=== PATIENT | female | born 1955 | race Caucasian/White ===

== ENCOUNTER → 2016-07-18 | Outpatient (CLI) | payer OTHER ==
[~2016-07-18] MED LIST: CALC600T10 PO; ONETAB35 PO; PRAV40TA2 PO; VITA500L3 PO
--- NOTE | 2016-07-22 10:59 | DEXA ---
AP SPINE L1 - L4 1.212 0.1 0.4 LT FEMUR TOTAL 1.031 0.2 0.4 RT FEMUR TOTAL 1.045 0.3 0.5 TOTAL BODY TOTAL OTHER DUAL FEMUR FRAX* ASSESSMENT Risk factors: History of adult fracture. 10 year probability of fracture Major osteoporotic fracture 11.7 % Hip fracture 0.7 % COMMENTS: Normal bone densitometry of the spine and hips. The density of the left hip has decreased 7.9% since 05/08/2008. The density of the right hip has decreased 0.5% since 05/08/2008. The density of the spine has decreased 2.4% since the initial exam on 2002. The spine density has decreased 1.4% since the most recent exam on 05/08/2008. FOLLOW-UP: Recommendation for the next bone density exam: 5 years. JENNIFER
== END | disposition home or self-care (01) ==
LOC: M WHC 07:59
PROVIDERS: ATTEND Internal Medicine
DX: M85.80 Other specified disorders of bone density and structure, unspecified site (principal)

== ENCOUNTER → 2016-12-03 | Outpatient (REF) | payer OTHER | LOC: M LABDRAWC 10:44 | PROVIDERS: ATTEND Obstetrics & Gynecology Gynecologic Oncology | DX: C56.9 Malignant neoplasm of unspecified ovary (principal) ==

== ENCOUNTER → 2017-12-04 | Outpatient (REF) | payer OTHER ==
[2017-12-04 12:23] LABS: CA 125 7.6 U/ML (<30.2)
== END ==
LOC: M LAB REF 11:21
DX: Z68.35 Body mass index [BMI] 35.0-35.9, adult (principal); C56.9 Malignant neoplasm of unspecified ovary

== ENCOUNTER → 2018-05-20 | Outpatient (CLI) | payer OTHER | LOC: M RAD 09:37 | DX: Z12.31 Encounter for screening mammogram for malignant neoplasm of breast (principal); Z92.0 Personal history of contraception | CPT/HCPCS: 77067 ==

== ENCOUNTER → 2018-12-07 | Outpatient (REF) | payer OTHER ==
[~2018-12-07] MED LIST changes: -CALC600T10 PO; +CALC600T31 PO
== END ==
LOC: M LABDRAW1 11:12
PROVIDERS: ATTEND Obstetrics & Gynecology Gynecologic Oncology
DX: C56.9 Malignant neoplasm of unspecified ovary (principal)

== ENCOUNTER → 2019-02-21 | Outpatient (CLI) | payer MEDICARE, OTHER ==
--- NOTE | 2019-02-21 11:59 | REP ---
REASON: Pain. COMPARISON: None. Vertebral body height and alignment is within normal limits. There is mild posterior disc space narrowing and anterior lipping at every level. Mild to moderate hypertrophic degenerative facet joint changes are present at every level bilaterally particularly L4-5 and L5-S1. The pedicles are intact bilaterally. There is no evidence of spondylolysis or spondylolisthesis. Tiny partial syndesmophytes are seen bilaterally at every level. Vascular clips are seen in the abdomen and pelvis. IMPRESSION: Chronic changes as described above. Electronically Signed by Dashawn Fernando DO 02/21/2019 12:49 P
== END ==
LOC: M WUC 10:03
PROVIDERS: ATTEND Internal Medicine
DX: M51.36 Other intervertebral disc degeneration, lumbar region (principal); M51.37 Other intervertebral disc degeneration, lumbosacral region

== ENCOUNTER → 2019-05-20 | Outpatient (CLI) | payer MEDICARE, OTHER | LOC: M PLARAD 13:39 | PROVIDERS: ATTEND Orthopaedic Surgery | DX: M54.16 Radiculopathy, lumbar region (principal) ==

== ENCOUNTER → 2019-05-20 | Outpatient (CLI) | payer MEDICARE, OTHER ==
[2019-05-20 10:39] LABS: BLOOD UREA NITROGEN 15 MG/DL (7-18); CREATININE FOR GFR 0.91 MG/DL (0.55-1.30); GLOMERULAR FILTRATION RATE > 60.0 (>45)
--- NOTE | 2019-05-20 16:56 | REP ---
MRI lumbar spine: 05/20/2019. Indication: Low back pain. Lumbar radiculopathy. Comparison: None. Technique: Multiplanar short and long TR sequences of the lumbar spine were obtained including post-gadolinium images. 20 ml IV ProHance were administered. Findings: Exaggerated endplate degenerative signal changes are noted at T11/T12 with diminished disc space height, particularly anteriorly and slightly exaggerated kyphosis. Lumbar vertebral body alignment is unremarkable. The visualized cord is unremarkable. No worrisome marrow signal or pathologic compression fractures are present. There is abnormal T2 signal and corresponding abnormal gadolinium enhancement surrounding the right L4/L5 facet joint which is most consistent with degenerative changes. Perineural cyst is noted on the right at L5/S1. There is a large cyst of the right kidney which is incompletely evaluated. L1/L2: Unremarkable. L2/L3: Unremarkable. L3/L4: Diffuse disc bulge and bilateral facet arthropathy are present with mild spinal canal / recess narrowing. L4/L5: Significant bilateral facet arthropathy is present with moderate recess and mild bilateral neural foraminal narrowing. L5/S1: Right greater than left facet arthropathy is present without significant spinal canal or neural foraminal narrowing. Impression: Degenerative sequelae most pronounced anteriorly at T11/T12 as described. Perifacetal reactive changes on the right at L4/L5. Large right renal cyst. Please correlate. Electronically Signed by Jono Escobar DO 05/20/2019 04:47 P
== END ==
LOC: M LAB 08:56
PROVIDERS: ATTEND Orthopaedic Surgery
DX: M54.16 Radiculopathy, lumbar region (principal)

== ENCOUNTER → 2019-07-18 | Outpatient (CLI) | payer MEDICARE, OTHER ==
--- NOTE | 2019-07-18 11:40 | REPMRS ---
Patient History The patient states she had a clinical breast exam in 12/2018. Patient is postmenopausal, has history of ovarian cancer at age 44, and had previous chemotherapy at age 44. Family history of breast cancer at age 75 in maternal aunt, breast cancer at age 55 in maternal aunt. Took hormonal contraceptives for 5 years. Digital Woman Screen Mammo: July 18, 2019 - Exam #: [id number] Bilateral CC and MLO view(s) were taken. Technologist: Annamarie Watkins, Technologist Prior study comparison: May 20, 2018, bilateral digital mammo screening bilat, performed at [facility]. May 18, 2017, bilateral digital mammo screening bilat, performed at [facility]. May 15, 2016, right breast digital mammo diagnostic unilateral, performed at [facility]. May 05, 2016, bilateral digital mammo screening bilat, performed at [facility]. FINDINGS: There are scattered fibroglandular densities. There has been no change in the appearance of the mammogram from the prior studies. There is a mild amount of scattered fibroglandular density which is fairly symmetric. There is no interval development of dominant mass, architectural distortion, or grouped microcalcification suggestive of malignancy. 3-D tomosynthesis shows no additional findings. Assessment: BI-RADS/ACR category 1 mammogram. Negative Mammogram. Recommendation Routine screening mammogram of both breasts in 1 year (for women over age 40). This patient's Lifetime Breast Cancer Risk is estimated at 8.2 %. This mammogram was interpreted with the aid of an FDA-approved computer-aided dectection system. Electronically Signed By: Medhat Montilla MD 07/18/19 [id number]
== END ==
LOC: M WHC 09:28
PROVIDERS: ATTEND Obstetrics & Gynecology Gynecologic Oncology
DX: Z12.31 Encounter for screening mammogram for malignant neoplasm of breast (principal)

== ENCOUNTER → 2019-12-16 | Outpatient (REF) | payer MEDICARE, OTHER | LOC: M LABDRAWC 16:05 | PROVIDERS: ATTEND Obstetrics & Gynecology Gynecologic Oncology | DX: Z85.43 Personal history of malignant neoplasm of ovary (principal) ==

== ENCOUNTER → 2020-01-30 | Outpatient (CLI) | payer SELFPAY | LOC: M LABSMTC 10:21 | PROVIDERS: ATTEND Pediatrics | DX: Z20.828 Contact with and (suspected) exposure to other viral communicable diseases (principal); Z11.59 Encounter for screening for other viral diseases ==

== ENCOUNTER → 2020-04-20 | Outpatient (REF) | payer MEDICARE, OTHER | LOC: M LAB REF 16:10 | PROVIDERS: ATTEND Internal Medicine | DX: M13.80 Other specified arthritis, unspecified site (principal) ==

== ENCOUNTER → 2020-07-19 | Outpatient (CLI) | payer MEDICARE, OTHER ==
--- NOTE | 2020-07-19 11:42 | REPMRS ---
Patient History The patient states she had a clinical breast exam in December 2019. Family history of breast cancer at age 75 in maternal aunt, breast cancer at age 55 in maternal aunt. Took hormonal contraceptives for 5 years. 3D TOMOSYNTHESIS WAS PERFORMED. The [facility] lifetime risk for breast cancer is 7.8%. Volpara breast density b. Digital Woman Screen Mammo: July 19, 2020 - Exam #: [id number] Bilateral CC and MLO view(s) were taken. Technologist: Bhumi Vazquez, Technologist Prior study comparison: July 18, 2019, bilateral digital woman screen mammo performed at [facility]. May 20, 2018, bilateral digital mammo screening bilat, performed at [facility]. FINDINGS: There are scattered fibroglandular densities. There has been no change in the appearance of the mammogram from the prior studies. There is a mild amount of residual fibroglandular tissue which is fairly symmetric. There is no interval development of dominant mass, architectural distortion, or clustered microcalcification suggestive of malignancy. Assessment: BI-RADS/ACR category 1 mammogram. Negative Mammogram. Recommendation Routine screening mammogram in 1 year (for women over age 40). This mammogram was interpreted with the aid of an FDA-approved computer-aided dectection system. Electronically Signed By: Moe Lozano MD 07/19/20 [id number]
== END ==
LOC: M WHC 10:52
PROVIDERS: ATTEND Obstetrics & Gynecology Gynecologic Oncology
DX: Z12.31 Encounter for screening mammogram for malignant neoplasm of breast (principal)

== ENCOUNTER → 2020-12-24 | Outpatient (REF) | payer MEDICARE, OTHER | LOC: M LABDRAWC 17:54 | PROVIDERS: ATTEND Obstetrics & Gynecology Gynecologic Oncology | DX: Z85.43 Personal history of malignant neoplasm of ovary (principal) ==

== ENCOUNTER → 2021-10-23 | Outpatient (CLI) | payer MEDICARE, OTHER | LOC: M WHC 09:40 | PROVIDERS: ATTEND Internal Medicine | DX: M81.0 Age-related osteoporosis without current pathological fracture (principal); Z12.31 Encounter for screening mammogram for malignant neoplasm of breast ==

== ENCOUNTER → 2021-10-23 | Outpatient (CLI) | payer MEDICARE, OTHER | LOC: M WHC 09:44 | PROVIDERS: ATTEND Obstetrics & Gynecology Gynecologic Oncology | DX: Z12.31 Encounter for screening mammogram for malignant neoplasm of breast (principal) ==

== ENCOUNTER → 2021-12-24 | Outpatient (REF) | payer MEDICARE, OTHER | LOC: M LABDRAWC 11:06 | PROVIDERS: ATTEND Obstetrics & Gynecology Gynecologic Oncology | DX: Z85.43 Personal history of malignant neoplasm of ovary (principal) ==

== ENCOUNTER → 2022-06-19 | Outpatient (CLI) | payer MEDICARE, OTHER | LOC: M WHC 10:42 | PROVIDERS: ATTEND Internal Medicine | DX: N64.9 Disorder of breast, unspecified (principal) | CPT/HCPCS: 77065; G0279 ==

== ENCOUNTER → 2022-11-06 | Outpatient (CLI) | payer MEDICARE, OTHER | LOC: M WHC 11:36 | PROVIDERS: ATTEND Internal Medicine | DX: Z12.31 Encounter for screening mammogram for malignant neoplasm of breast (principal); Z85.43 Personal history of malignant neoplasm of ovary ==

== ENCOUNTER → 2022-12-22 | Outpatient (REF) | payer MEDICARE, OTHER | LOC: M LABDRAWC 16:57 | PROVIDERS: ATTEND Obstetrics & Gynecology Gynecologic Oncology | DX: Z85.43 Personal history of malignant neoplasm of ovary (principal) ==

== ENCOUNTER → 2023-11-13 | Outpatient (CLI) | payer MEDICARE, OTHER ==
[~2023-11-13] MED LIST changes: +B-12100010 PO; +CALCTAB89 PO; +CURC500C PO; +VITA500C19 PO
== END ==
LOC: M WHC 11:31
PROVIDERS: ATTEND Internal Medicine
DX: Z12.31 Encounter for screening mammogram for malignant neoplasm of breast (principal)

== ENCOUNTER → 2024-01-18 | Outpatient (REF) | payer MEDICARE, OTHER | LOC: M LABWUC 16:23 | PROVIDERS: ATTEND Obstetrics & Gynecology | DX: Z85.43 Personal history of malignant neoplasm of ovary (principal) ==

== ENCOUNTER → 2024-11-17 | Outpatient (CLI) | payer MEDICARE, OTHER ==
[~2024-11-17] MED LIST changes: -VITA500C19 PO; +VITA500C22 PO
== END ==
LOC: M WHC 14:20
PROVIDERS: ATTEND Internal Medicine
DX: Z12.31 Encounter for screening mammogram for malignant neoplasm of breast (principal)

== ENCOUNTER → 2025-03-21 | Outpatient (REF) | payer MEDICARE, OTHER ==
[~2025-03-21] MED LIST changes: -PRAV40TA2 PO; +PRAV40TA85 PO
== END ==
LOC: M LAB REF 18:02
PROVIDERS: ATTEND Internal Medicine
DX: Z85.43 Personal history of malignant neoplasm of ovary (principal)